=== PATIENT | male | born 1980 | race Caucasian/White ===

== ENCOUNTER 2017-06-14 17:38 | Emergency (ER) | payer BC ==
[2017-06-14] MEDS ORDERED: Sodium Chloride 0.9% 10 ML Syringe FLUSH PRN (18:03)
[2017-06-14] MEDS ORDERED: Ketorolac 30 MG/ML SDV IVPUSH ONE (18:04)
[2017-06-14] MEDS ORDERED: Ondansetron 4 MG/2 ML SDV IVPUSH ONE (18:05)
[2017-06-14] MEDS ORDERED: Acetaminophen/oxyCODONE 325-5 MG Tab ONE (18:15)
[2017-06-14] MEDS ORDERED: predniSONE 10 MG Tab ONE (18:15)
[2017-06-14] MEDS ORDERED: Indomethacin 50 MG Cap ONE (18:15)
[2017-06-14] MEDS ORDERED: HYDROmorphone 2 MG/ML Syringe IVPUSH ONE ×2 (18:27→19:15)
[2017-06-14] MEDS ORDERED: predniSONE 20 MG Tab ONE (19:51)
[2017-06-14] MEDS ORDERED: predniSONE 20 MG Tab PO ONE (19:51)
[2017-06-14] MEDS ORDERED: Indomethacin 25 MG Cap ONE (20:23)
--- NOTE | 2017-06-14 20:27 | CR ---
DATE OF SERVICE: 06/14/2017 CLINICAL DATA: Extreme knee pain. LEFT KNEE No acute fracture or dislocation. No lytic or blastic bone lesions. There is a small joint effusion. [id number] MTDD
--- NOTE | 2017-06-14 20:34 | EDM.PDOC ---
ED HPI GENERAL MEDICAL PROBLEM - General Chief Complaint: Lower Extremity Injury/Pain Stated Complaint: LEFT KNEE INJURY Time Seen by Provider: 06/14/17 18:00 Source of Information: Reports: Patient, Family History Limitations: Reports: No Limitations - History of Present Illness INITIAL COMMENTS - FREE TEXT/NARRATIVE: Patient is a 36 year old man who has MS affecting the left side of his body. 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 He started having the worst pain ever in his left knee while sitting in the deer stand. His son helped him get back to his house but he could barely put any weight on the left leg due to the 9/10 severe, stabbing, spasms in his left knee and leg. He is nauseated from the pain but no trauma to the knee known. He does have some swelling of the left knee but no warmth or erythema. No fever or chills. Onset: Today Onset Date: 06/14/17 Onset Time: 16:30 Duration: Hour(s): (2), Getting Worse Location: Reports: Lower Extremity, Left Quality: Reports: Sharp, Stabbing, Throbbing Severity: Severe Improves with: Reports: Medication Worsens with: Reports: Movement Context: Reports: Other (History of MS.) Associated Symptoms: Reports: Nausea/Vomiting Left Knee Pain Score (Numeric/FACES): 10 - Related Data Allergies Allergy/AdvReac Type Severity Reaction Status Date / Time sulfamethoxazole Allergy Cannot Verified 06/14/17 18:19 [From ] Remember trimethoprim [From ] Allergy Cannot Verified 06/14/17 18:19 Remember Home Meds: Home Meds . [Unable to Verify Home Med List] 06/14/17 [History] Past Medical History Cardiovascular History: Reports: Hypertension Neurological History: Reports: MS - Past Surgical History Neurological Surgical History: Reports: Other (See Below) Other Neurological Surgeries/Procedures: brain biopsy Social & Family History - Recreational Drug Use Recreational Drug Use: No Review of Systems - Review of Systems Review Of Systems: See Below Constitutional: Reports: No Symptoms Eyes: Reports: No Symptoms Ears: Reports: No Symptoms Nose: Reports: No Symptoms Mouth/Throat: Reports: No Symptoms Respiratory: Reports: No Symptoms Cardiovascular: Reports: No Symptoms GI/Abdominal: Reports: Nausea, Vomiting Genitourinary: Reports: No Symptoms Musculoskeletal: Reports: Joint Pain, Joint Swelling, Muscle Pain (Left knee) Skin: Reports: No Symptoms Neurological: Reports: No Symptoms Psychiatric: Reports: No Symptoms ED EXAM, GENERAL - Physical Exam Exam: See Below Exam Limited By: No Limitations General Appearance: Alert, WD/WN, No Apparent Distress Eye Exam: Bilateral Eye: EOMI, Normal Fundi, Normal Inspection, PERRL Ears: Normal External Exam, Normal Canal, Hearing Grossly Normal, Normal TMs Ear Exam: Bilateral Ear: Auricle Normal, Canal Normal, TM normal Nose: Normal Inspection, Normal Mucosa, No Blood Throat/Mouth: Normal Inspection, Normal Lips, Normal Teeth, Normal Gums, Normal Oropharynx, Normal Voice, No Airway Compromise Head: Atraumatic, Normocephalic Neck: Normal Inspection, Supple, Non-Tender, Full Range of Motion Respiratory/Chest: No Respiratory Distress Cardiovascular: Normal Peripheral Pulses, Regular Rate, Rhythm, No Edema, No Gallop, No JVD, No Murmur, No Rub Extremities: Joint Swelling (Left knee by patella.), Leg Pain (Over the left knee on palpation.), Limited Range of Motion (Left knee due to pain.) Neurological: Abnormal Gait (Due to left knee pain.) Psychiatric: Normal Affect, Normal Mood Skin Exam: Warm, Dry, Intact, Normal Color, No Rash Lymphatic: No Adenopathy Course - Vital Signs Text/Narrative:: Uncomplicated ED course. His pain went from 9/10 to 4/10 with 2 mg total of IV Dilaudid, 30 mg IV Toradol and 4 mg of oral Zofran. He also got 80 mg of oral prednisone and 50 mg of oral indomethacin. His labs were all normal except for a mildly elevated WBC of 12.2 and he had an elevated Uric Acid of 7.9. He had a normal left knee x-ray by my initial reading. He will be sent home with a knee immobilizer with crutches and on Prednisone 50 mg po q day for the next 3 days, Indomethacin 50 mg po tid and Percocet 5/325 one po q 4 hours. He will have a left knee MRI tomorrow and will follow up with Dr. Riojas to go over the results of the MRI and treatment on Thursday. He can return here if needed. Last Recorded V/S: Last Vital Signs Temp 36.3 C 06/14/17 17:50 Pulse 86 06/14/17 17:50 Resp 20 06/14/17 17:50 BP 107/91 H 06/14/17 17:50 Pulse Ox 99 06/14/17 19:04 - Orders/Labs/Meds Orders: Active Orders 24 hr Category Date Time Status Sodium Chloride 0.9% [Saline Flush] Med 06/14/17 18:03 Active 10 ml FLUSH ASDIRECTED PRN Saline Lock Insert [OM.PC] Routine Oth 06/14/17 18:03 Ordered Medication Orders Sodium Chloride (Saline Flush) 10 ml FLUSH ASDIRECTED PRN PRN Reason: Keep Vein Open Labs: Laboratory Tests 06/14/17 06/14/17 06/14/17 Range/Units 18:30 18:30 18:30 WBC 12.5 H D (4.0-11.0) K/uL RBC 4.92 (4.50-6.50) M/uL Hgb 15.7 (13.0-18.0) g/dL Hct 43.6 (40.0-54.0) % MCV 89 (76-96) fL MCH 31.9 (27.0-32.0) pg MCHC 36.0 H (31.0-35.0) g/dL RDW 12.3 (11.0-16.0) % Plt Count 238 (150-400) K/uL MPV 8.9 (6.0-10.0) fL Neut % (Auto) 87.7 H (45.0-70.0) % Lymph % (Auto) 4.3 L (20.0-40.0) % [place] % (Auto) 7.6 (3.0-10.0) % Eos % (Auto) 0.2 L (1.0-5.0) % Baso % (Auto) 0.2 (0.0-0.5) % Neut # (Auto) 10.96 H (2.00-7.50) K/uL Lymph # (Auto) 0.54 L (1.50-4.00) K/uL [place] # (Auto) 0.95 H (0.20-0.80) K/uL Eos # (Auto) 0.02 L (0.04-0.40) K/uL Baso # (Auto) 0.02 (0.02-0.10) K/uL ESR 1 (0-15) mm/hr Sodium 140 (136-145) mmol/L Potassium 3.2 L D (3.5-5.1) mmol/L Chloride 100 (98-107) mmol/L Carbon Dioxide 28.4 (21.0-32.0) mmol/L Anion Gap 14.8 (5.0-15.0) mmol/L BUN 23 D (8-26) mg/dL Creatinine 1.14 (0.70-1.30) mg/dL Est Cr Clr Drug Dosing TNP Estimated GFR (MDRD) > 60 (>60) MLS/MIN BUN/Creatinine Ratio 20.2 (6-25) Glucose 114 H (74-100) mg/dL Uric Acid (2.6-7.2) mg/dL Calcium 9.1 (8.5-10.1) mg/dL Total Bilirubin 0.7 (0.0-1.0) mg/dL AST 30 (15-37) U/L ALT 81 H (12-78) U/L Alkaline Phosphatase 62 (46-116) U/L C-Reactive Protein 1.0 (0.0-3.0) mg/L Total Protein 7.3 (6.4-8.2) g/dL Albumin 4.3 (3.4-5.0) g/dL Globulin 3.0 (2.2-4.2) g/dL Albumin/Globulin Ratio 1.4 (0.8-2.0) 06/14/17 Range/Units 18:30 WBC (4.0-11.0) K/uL RBC (4.50-6.50) M/uL Hgb (13.0-18.0) g/dL Hct (40.0-54.0) % MCV (76-96) fL MCH (27.0-32.0) pg MCHC (31.0-35.0) g/dL RDW (11.0-16.0) % Plt Count (150-400) K/uL MPV (6.0-10.0) fL Neut % (Auto) (45.0-70.0) % Lymph % (Auto) (20.0-40.0) % [place] % (Auto) (3.0-10.0) % Eos % (Auto) (1.0-5.0) % Baso % (Auto) (0.0-0.5) % Neut # (Auto) (2.00-7.50) K/uL Lymph # (Auto) (1.50-4.00) K/uL [place] # (Auto) (0.20-0.80) K/uL Eos # (Auto) (0.04-0.40) K/uL Baso # (Auto) (0.02-0.10) K/uL ESR (0-15) mm/hr Sodium (136-145) mmol/L Potassium (3.5-5.1) mmol/L Chloride (98-107) mmol/L Carbon Dioxide (21.0-32.0) mmol/L Anion Gap (5.0-15.0) mmol/L BUN (8-26) mg/dL Creatinine (0.70-1.30) mg/dL Est Cr Clr Drug Dosing Estimated GFR (MDRD) (>60) MLS/MIN BUN/Creatinine Ratio (6-25) Glucose (74-100) mg/dL Uric Acid 7.9 H (2.6-7.2) mg/dL Calcium (8.5-10.1) mg/dL Total Bilirubin (0.0-1.0) mg/dL AST (15-37) U/L ALT (12-78) U/L Alkaline Phosphatase (46-116) U/L C-Reactive Protein (0.0-3.0) mg/L Total Protein (6.4-8.2) g/dL Albumin (3.4-5.0) g/dL Globulin (2.2-4.2) g/dL Albumin/Globulin Ratio (0.8-2.0) Meds: Medications Generic Name Dose Route Start Last Admin Trade Name Freq PRN Reason Stop Dose Admin Sodium Chloride 10 ml 06/14/17 18:03 Saline Flush FLUSH ASDIRECTED PRN Keep Vein Open Discontinued Medications Generic Name Dose Route Start Last Admin Trade Name Freq PRN Reason Stop Dose Admin Hydromorphone HCl 1 mg 06/14/17 18:27 06/14/17 18:31 Dilaudid IVPUSH 06/14/17 18:28 1 mg ONETIME ONE Administration Hydromorphone HCl 1 mg 06/14/17 19:15 06/14/17 19:15 Dilaudid IVPUSH 06/14/17 19:16 1 mg ONETIME ONE Administration Indomethacin Confirm 06/14/17 20:23 Indocin Administered 06/14/17 20:24 Dose 300 mg .ROUTE .STK-MED ONE Ketorolac Tromethamine 30 mg 06/14/17 18:04 06/14/17 18:06 Toradol IVPUSH 06/14/17 18:05 30 mg ONETIME ONE Administration Ondansetron HCl 4 mg 06/14/17 18:05 06/14/17 18:05 Zofran IVPUSH 06/14/17 18:06 4 mg ONETIME ONE Administration Prednisone Confirm 06/14/17 19:51 Prednisone Administered 06/14/17 19:52 Dose 80 mg .ROUTE .STK-MED ONE Prednisone 80 mg 06/14/17 19:51 06/14/17 19:57 Prednisone PO 06/14/17 19:52 80 mg ONETIME ONE Administration Departure - Departure Time of Disposition: 20:46 Disposition: Home, Self-Care 01 Condition: Good Clinical Impression: Inflammatory arthritis - Discharge Information Referrals: PCP,None [Primary Care Provider] - - My Orders Last 24 Hours: My Active Orders 06/14/17 18:03 Sodium Chloride 0.9% [Saline Flush] 10 ml FLUSH ASDIRECTED PRN Saline Lock Insert [OM.PC] Routine - Assessment/Plan Last 24 Hours: My Active Orders 06/14/17 18:03 Sodium Chloride 0.9% [Saline Flush] 10 ml FLUSH ASDIRECTED PRN Saline Lock Insert [OM.PC] Routine
== END 2017-06-14 20:45 | disposition home or self-care (01) ==
LOC: LB.ED 17:38
DX: M17.12 Unilateral primary osteoarthritis, left knee (principal); I10 Essential (primary) hypertension; Z88.2 Allergy status to sulfonamides; Z88.1 Allergy status to other antibiotic agents
CPT/HCPCS: 36415; 73560; 80053; 84550; 85025; 85651; 86140; 96374; 96375; 96376; 99283; A9270; J1170; J1885; J2405